=== PATIENT | female | born 1990 | race Caucasian/White ===

== ENCOUNTER 2022-07-20 12:30 | Outpatient (RCR) | payer OTHER, SELFPAY ==
[2022-07-14 11:32] VITALS: BP 129/88; PULSE 97; RESP 16; TEMP 36.4; O2SAT 100
[2022-07-14] MEDS: METHYLPREDNISOLONE SOD SUCC 1,000 MG in 0.9 % SODIUM CHLORIDE 100 ml 100 ML 116 MG IVPB (12:10)
[2022-07-15 08:01] VITALS: BP 122/77; PULSE 91; RESP 16; TEMP 35.8; O2SAT 95
[2022-07-15] MEDS: SODIUM CHLORIDE 0.9 % (FLUSH) 10 ML SYRINGE IVF (08:15)
[2022-07-15] MEDS: 0.9 % SODIUM CHLORIDE 250 ml IV (08:15)
[2022-07-15] MEDS: METHYLPREDNISOLONE SOD SUCC 1,000 MG in 0.9 % SODIUM CHLORIDE 100 ml 100 ML 116 MG IVPB (08:16)
[2022-07-18 10:54] VITALS: BP 105/73; PULSE 79; RESP 16; TEMP 36.6; O2SAT 97
[2022-07-18 11:20] VITALS: BP 108/60; BP 72/46; PULSE 44; PULSE 57; O2SAT 100; O2SAT 98
[2022-07-18 11:28] VITALS: BP 119/75; PULSE 64; O2SAT 99
[2022-07-18] MEDS: 0.9 % SODIUM CHLORIDE 250 ml IV (11:30)
[2022-07-18] MEDS: METHYLPREDNISOLONE SOD SUCC 1,000 MG in 0.9 % SODIUM CHLORIDE 100 ml 100 ML 120 MG IVPB (11:39)
--- NOTE | 2022-07-18 13:00 | PC.NURSE ---
Upon second attempt at starting peripheral IV in RIGHT forearm, pt verbalized that she was getting warm and then stated she was going to pass out. She proceeded to lose consciousness and was not responding to verbal stimuli. Nacho Diallo called and Ivone Grace APRN and [facility] staff came to assist. Vital signs obtained, see flowsheet. IV started in her LEFT hand. NS started to gravity. Pt was placed in Trendelenburg as able given she was in a reclining chair. After about 30 seconds pt regained consciousness and continued to verbalize that she felt very warm. Dr. Acosta came to pt's bedside to monitor and assess pt. Vital signs began to normalize, color returned to pt's face, and she started to feel better. then left the scene after pt stabilized. JEREMÍAS Wiseman directed this keno writer / runner to slow down IVF and proceed with her scheduled infusion.
[2022-07-19 10:46] VITALS: BP 129/82; PULSE 87; RESP 16; TEMP 36.9; O2SAT 95
[2022-07-19] MEDS: METHYLPREDNISOLONE SOD SUCC 1,000 MG in 0.9 % SODIUM CHLORIDE 100 ml 100 ML 116 MG IVPB (11:47)
[2022-07-19] MEDS: SODIUM CHLORIDE 0.9 % (FLUSH) 10 ML SYRINGE IVF (12:58)
[2022-07-20 12:23] VITALS: BP 124/80; PULSE 86; RESP 18; TEMP 36.6; O2SAT 96
[2022-07-20] MEDS: 0.9 % SODIUM CHLORIDE 250 ml IV (12:38)
[2022-07-20] MEDS: SODIUM CHLORIDE 0.9 % (FLUSH) 10 ML SYRINGE IVF (12:39)
[2022-07-20] MEDS: METHYLPREDNISOLONE SOD SUCC 1,000 MG in 0.9 % SODIUM CHLORIDE 100 ml 100 ML 120 MG IVPB (12:57)
== END 2023-01-10 23:59 | disposition home or self-care (01) ==
LOC: CCIC 12:30
PROVIDERS: Visit Provider Clinical Nurse Specialist
DX: G35 Multiple sclerosis (principal)
CPT/HCPCS: 96365; 99212; 99214; J2930; J7050

== ENCOUNTER 2023-02-01 08:25 | Outpatient (RCR) | payer OTHER, SELFPAY ==
--- NOTE | 2023-01-30 10:25 | PC.NURSE ---
Called pt today to confirm treatment scheduled for Monday. Pt is aware. She also shares that she was hoping to talk to financial services regarding an Ovravis payment plan that she has utilized in the past. RN reached out to financial services and they will call pt directly.
--- NOTE | 2023-01-30 11:52 | URNOTE ---
Request received for authorization for?Denis ([id number]). Prior authorization is approved from 02/01/2023 to 01/31/2024, [facility] Ref#[id number].
[2023-02-01 08:50] VITALS: BP 107/72; PULSE 97; RESP 16; TEMP 36.6; O2SAT 97
[2023-02-01] MEDS: ACETAMINOPHEN 325 MG TABLET 650 MG PO (09:06)
[2023-02-01] MEDS: METHYLPREDNISOLONE SOD SUCC 62.5 MG/ML (125) 100 MG IVP (09:06)
[2023-02-01] MEDS: diphenhydrAMINE 50 MG in 0.9 % SODIUM CHLORIDE 100 ml 100 ML 404 MG IVPB (09:18)
== END 2023-07-31 23:59 | disposition home or self-care (01) ==
LOC: CCIC 08:25
PROVIDERS: Visit Provider Clinical Nurse Specialist
DX: G35 Multiple sclerosis (principal)
CPT/HCPCS: 96376; 96413; 96415; A9270; J1200; J2350; J2930; J7120

== ENCOUNTER 2023-12-04 14:53 | Outpatient (CLI) | payer OTHER, SELFPAY | END 2023-12-04 14:54 | disposition home or self-care (01) | PROVIDERS: Visit Provider Advanced Practice Midwife | DX: Z34.91 Encounter for supervision of normal pregnancy, unspecified, first trimester (principal); Z3A.08 8 weeks gestation of pregnancy | CPT/HCPCS: 76817; 86592; 86703; 86704; 86706; 86762; 86787; 86803; 86850; 86900; 86901; 87086; 87340 ==

== ENCOUNTER 2024-02-22 12:56 | Outpatient (CLI) | payer OTHER, SELFPAY ==
--- NOTE | 2024-02-22 13:00 | US_ITS ---
Patient: [facility] Facility:?[facility] RIS Patient ID:?[id number] Site Patient ID:?[id number]. Site :?1991 Study:?US-OB Pelvis [facility]-02/22/2024 2:08:40 PM Ordering Physician:?CAMPOS HENDERSON Final Report: OB US LETTY by LMP: 07/11/2024. GA: 20w, 0d. INDICATION: Basic anatomy survey. FINDINGS: The trans cervical spine and trans thoracic spine images are suboptimal. Bilateral renal pelviectasis measuring 6 mm on the left and 6 mm on the right. position: Multiple positions. Cervix: Visualized. Technique: Transabdominal. Length of closed cervix: 4.8 cm. Placenta/cord: Anterior. Technique: Transabdominal. Placenta tip to internal OS: 3.6 cm. Umbilical Cord: 3-vessel cord. Placenta insertion: Central. Amniotic Fluid: 4.8cm SDP (greater than/equal to: 2- less than 8 cm). SURVEY: Observed Structures Cerebellum: Yes. 1.9 cm; 19w 6d. Cisterna Magna: Yes. 3 mm. Nuchal Fold: Yes. 2.7 mm. Lateral Ventricle: Yes. 6.8 mm. CSP: Yes. Midline Falx: Yes. Choroid Plexus: Yes. Spine: Yes/suboptimal Stomach: Yes. Abd Cord Insertion: Yes. Urinary Bladder: Yes. Diaphragm: Yes. Nose/lips: Yes. Orbital view: Yes. Profile: Yes. Upper Extremities: Yes. Lower Extremities: Yes. Hands: Yes. Feet: Yes. Four-Chamber Heart: Yes. LVOT: Yes. RVOT: Yes. 3VV: Yes. 3VTV: Yes. BPD: 4.4 cm. 19w 2d, 21 percent. HC: 16.8 cm. 19w 3d, 20 percent. AC: 15.6 cm. 20w 5d, 68 percent. FL: 3.2 cm. 20w 0d, 43 percent. FL/AC: 20.71 percent. HC/AC Ratio: 1.08. Heart rate: 138 beats per minute. age by this US: 19w 6d. LETTY by this US: 07/12/2024. EFW: 343 g. Weight: 12 oz. Percentile by LETTY: 61 percent. IMPRESSION: Single live intrauterine gestation. Pelviectasis bilaterally measuring 6 mm. Trans image of the cervical spine and thoracic spine are suboptimal. No gross anomalies otherwise seen. Erin Kaye M.D. Diagnostic/Breast Radiologist [email or web address] D& Transcribed: 12:51 p.m. SP/Dictated by: Erin Kaye MD @ 02/23/2024 10:03:00 AM Signed by:?Erin Kaye MD @02/25/2024 10:48:53 AM (Electronic Signature)
== END 2024-02-22 12:57 | disposition home or self-care (01) ==
LOC: US 12:57
PROVIDERS: Visit Provider Obstetrics & Gynecology
DX: Z34.92 Encounter for supervision of normal pregnancy, unspecified, second trimester (principal); Z3A.19 19 weeks gestation of pregnancy
CPT/HCPCS: 76805

== ENCOUNTER 2024-04-19 13:47 | Outpatient (CLI) | payer OTHER, SELFPAY ==
--- NOTE | 2024-04-19 14:00 | CRLHL7_ITS ---
For Patients: As a result of the Century Cures Act, medical imaging exams and procedure reports are released immediately into your electronic medical record. You may view this report before your referring provider. If you have questions, please contact your health care provider. INDICATION: Third trimester scan, evaluate growth. Follow-up pelviectasis. COMPARISON: 02/22/2024 TECHNIQUE: Real time matos scale imaging of the fetus was performed. FINDINGS: Sonographic imaging demonstrates a single living intrauterine gestation. Fetus demonstrates a regular cardiac rate of 142 beats per minute. Fetus has a vertex position. The placenta lies anteriorly. Amniotic fluid volume appears normal and there is a single deepest vertical pocket: 5.9 cm. The estimated weight is 1318gm which lies at the 70th %. On the prior OB ultrasound exam dated 02/22/2024 the estimated weight was at the 61st%. BPD 77th percentile. HC 50th percentile. AC is 74th percentile. FL 48th percentile. The HC/AC ratio measures 1.07 range (0.99-1.21). Right renal pelvis measures 2.6 millimeters. Left renal pelvis measures 2.4 millimeters. Previously, the renal pelvis measured 5-6 millimeters bilaterally. IMPRESSION: The renal pelvis has decreased in size bilaterally compared to the prior study. Sonographic gestational age 29 weeks 1 day and sonographic due date 07/04/2024. Sonographic age 1 week ahead of the clinical age. Estimated weight is 70th percentile. Abdominal circumference 74th percentile. Dictated by Niko Bundy MD @ 04/21/2024 7:13:30 AM (Electronically Signed)
== END 2024-04-19 13:48 | disposition home or self-care (01) ==
LOC: US 13:49
PROVIDERS: Visit Provider Obstetrics & Gynecology
DX: O28.3 Abnormal ultrasonic finding on antenatal screening of mother (principal); Z3A.29 29 weeks gestation of pregnancy
CPT/HCPCS: 76816; 86592

== ENCOUNTER 2024-05-28 14:30 | Outpatient (CLI) | payer OTHER, SELFPAY ==
--- NOTE | 2024-05-28 14:30 | CRLHL7_ITS ---
For Patients: As a result of the Century Cures Act, medical imaging exams and procedure reports are released immediately into your electronic medical record. You may view this report before your referring provider. If you have questions, please contact your health care provider. INDICATION: uterine size/date discrepancy COMPARISON: 04/19/2024 TECHNIQUE: Real time matos scale imaging of the fetus was performed. FINDINGS: Sonographic imaging demonstrates a single living intrauterine gestation. Fetus demonstrates a regular cardiac rate of 141 beats per minute. Fetus has a vertex position. The placenta lies anterior. Amniotic fluid volume appears normal and there is a single deepest vertical pocket: 7.4 cm. The estimated weight is 2737gm which lies at the 92nd %. On the prior OB ultrasound exam dated 04/19/2024 the estimated weight was at the 70th%. BPD 72nd percentile. HC 84th percentile. AC 90th percentile. FL 96th percentile. The HC/AC ratio measures 1.03 range (0.93-1.09). IMPRESSION: Sonographic gestational age 35 weeks 5 days and sonographic due date 06/27/2024. Sonographic age 2 weeks ahead of the clinical age. Estimated weight 92nd percentile. Abdominal circumference 90th percentile. Dictated by Niko Bundy MD @ 05/29/2024 6:53:35 AM (Electronically Signed)
== END 2024-05-28 14:31 | disposition home or self-care (01) ==
LOC: US 14:31
PROVIDERS: Visit Provider Obstetrics & Gynecology
DX: O26.849 Uterine size-date discrepancy, unspecified trimester (principal); O36.63X0 Maternal care for excessive fetal growth, third trimester, not applicable or unspecified; Z3A.35 35 weeks gestation of pregnancy
CPT/HCPCS: 76816

== ENCOUNTER 2024-06-10 12:03 | Outpatient (CLI) | payer OTHER, SELFPAY ==
[2024-06-11 12:32] LABS: Strep B DNA Probe Negative (Negative)
[2024-06-11 12:38] LABS: Strep B Susceptibility Needed? No
== END 2024-06-10 12:04 | disposition home or self-care (01) ==
PROVIDERS: Visit Provider Obstetrics & Gynecology
DX: Z34.03 Encounter for supervision of normal first pregnancy, third trimester (principal)
CPT/HCPCS: 87081; 87653

== ENCOUNTER 2024-07-07 20:17 | Outpatient (CLI) | payer OTHER, SELFPAY ==
[2024-07-07 20:24] VITALS: BP 130/79; PULSE 94
[2024-07-07 20:25] VITALS: PULSE 95; O2SAT 96
[2024-07-07 20:36] VITALS: RESP 18; TEMP 37
[2024-07-07 20:41] VITALS: PULSE 95; O2SAT 97
[2024-07-07 20:49] LABS: Appearance Urine Clear (Clear); Bilirubin Urine Negative (Negative); Blood Urine Negative (Negative); Color Urine Yellow (Yellow); Glucose Urine Negative (Negative); Ketones Urine 2+ (Negative); Leukocyte Esterase Urine Negative (Negative); Nitrite Urine Negative (Negative); Protein Urine Negative (Negative); Specific Gravity Urine 1.025 (1.000-1.030); Urobilinogen Urine 0.2 (0.2-1.0); pH Urine 5.5 (5.0-8.5)
--- NOTE | 2024-07-07 21:53 | PC.OBNST ---
NST Note NST Note Start: 07/07/24 20:18 Freq: ONCE Status: Active Protocol: Document 07/07/24 21:52 KASEY (Rec: 07/07/24 21:53 KASEY [id number]) NST Note 1 Para (# of births) 0 EDC 07/11/24 Gestational Age In Weeks & Days 39 Weeks & 3 Days Patient Presented with Complaint(s) of Contractions/cramping Reactive Yes Appropriate for Gestational Age Yes JERRELL Catsro RN Date 07/07/24 Reactive Yes Appropriate for Gestational Age Yes JERRELL Gamino RNC Date 07/07/24 OB NST charge Yes Complete NST Note via Write Note Yes The provider's electronic signature indicates the NST is reactive/appropriate for gestational age. *Note to provider: If an addendum is required, open the patient's chart and click on the note under the Nurse/Allied Health tab.
[2024-07-07 22:00] VITALS: BP 128/71; PULSE 74
== END 2024-07-07 22:13 | disposition home or self-care (01) ==
LOC: OB OUT 20:17 → OB 20:18
PROVIDERS: PCP Family Medicine; Visit Provider Obstetrics & Gynecology
DX: Z34.93 Encounter for supervision of normal pregnancy, unspecified, third trimester (principal); Z3A.39 39 weeks gestation of pregnancy
CPT/HCPCS: 59025; 81003; G0463

== ENCOUNTER 2024-07-18 06:34 | Inpatient (IN) | payer OTHER, SELFPAY ==
[2024-07-18] VITALS (132 sets, daily range): BP systolic 102–145; BP diastolic 46–84; PULSE 8–109; RESP 16; TEMP 36.6–37.1; O2SAT 74–100; BMI 39.6
[2024-07-18] MEDS: CEFAZOLIN 1 GM inj 3 GM IVP (00:01)
--- NOTE | 2024-07-18 07:26 | W.PM.LDBA ---
Subjective History of Present Illness Time Seen by Provider: 07:30 Date Seen: 07/18/24 Narrative: Emmanuelle is being admitted to Labor and Delivery for induction. She is a 33 year old at 41 and 0/7 weeks gestation. Her full history and physical was dictated by Dr. Jim on 06/25/2024. Please see this for details. Specific Issues/Plans HB: Solo. Baby: Boy! Wilson H&P by CGM on 06/25/24 # History of MS not on Medication Does not need Level 2 US Positive Ryan Murrell virus antibody (high link with MS per data less likely concern in ). #FAS 02/22/24: B/L mild pyelectasis: left:6mm, right: 5.6mm FU at 28 weeks: Bilateral kidneys within normal limits on 04/19/24 3. Anxiety- NOB: ADRIANA: (12), PHQ 9: (9) Managed with Hydroxyzine as needed Ultrasounds: 04/19: EFW 70%tile, AC 73.8%tile. SDP 5.9 cm.? 05/28: EFW 92%tile, AC 89%tile. SDP 7.4 cm. MATERNITY- 21- No increased risk for aneuploidy. COVID: declined Flu: declined TDAP: 05/20/24 32wk Mental Health: ADRIANA = 6 34wk Hgb: 12.9 OB - Problem Based A/P Additional Plan (1) Post-dates : Start date: 07/18/24 Status: Acute Plan: 1. Pitocin per induction protocol. 2. AROM when able. 3. Planning epidural for labor analgesia. 4. Blood type A+ 5. GBS negative. OB Exam Physical Exam Vital signs: Temp Pulse Resp BP Pulse Ox 98 F 87 16 122/78 97 07/18/24 07:01 07/18/24 07:01 07/18/24 07:01 07/18/24 07:01 07/18/24 06:59 Narrative: GENERAL APPEARANCE: Pleasant, , well-groomed woman in no acute distress. VITAL SIGNS: as noted in nursing notes HEAD: Normocephalic, atraumatic. THYROID: no masses, nodularity, tenderness or enlargement. LUNGS: Clear to auscultation bilaterally without wheezes, rales or rhonchi. HEART: Regular rate and rhythm with normal S1 and S2. No gallop, rub or murmur. ABDOMEN: Gravid. Soft, nontender, nondistended, with normal bowels sounds throughout. EFM: Baseline 130s, accelerations: Present, decelerations absent, reactive, category 1 TOCO: Sporadic contractions PRESENTATION: Vertex by George's maneuvers. SVE: 3.5 cm/ 70 %/ -1/soft/mid. Lundy score: 9 EXTREMITIES: No cyanosis, clubbing, or edema. No varicosities. NEUROLOGIC: Normal gait and balance. Normal deep tendon reflexes at bilateral patella 2+/2, equal without clonus. PSYCHIATRIC: alert and oriented x3. Normal speech pattern, eye contact and affect. SKIN: Warm, dry, and well perfused. Good turgor. No lesions, nodules or rashes.
[2024-07-18] MEDS: OXYTOCIN 30 unit/500 ML in NS 30 UNIT/500 ML BAG IVPB ×2 (08:11→21:16)
[2024-07-18 08:12] LABS: Basophils Percent Auto 0.2 % (0.0-3.0); Eosinophils Percent Auto 1.5 % (0.0-7.0); Hematocrit 40.7 % (33.0-51.0); Hemoglobin* 13.7 gm/dL (12.0-16.0); Immature Granulocytes Pct Auto 0.4 %; Mean Corpuscular HGB Conc 34 gm/dL (32-36); Mean Corpuscular Hemoglobin 29 pg (26-34); Mean Corpuscular Volume 86 fL (80-100); Monocytes Percent Auto 8.6 % (0.0-11.0); Neutrophils Percent Auto 66.3 % (42.0-72.0); Platelet Count* 283 K/uL (140-440); RDW Coefficient of Variation % 13.3 % (11.5-15.5); Red Blood Count 4.72 m/uL (4.00-5.20); White Blood Count* 11.38 K/uL (4.50-11.00)
[2024-07-18] MEDS: LACTATED RINGERS 1000 ML 1,000 ML 100 ML IV ×2 (08:14→16:38)
[2024-07-18 08:16] LABS: Slide Review Reflex No
[2024-07-18] MEDS: LACTATED RINGERS 1000 ML 1,000 ML 1200 ML IV ×3 (10:26→21:06)
--- NOTE | 2024-07-18 12:29 | PM.OBPNL ---
Subjective Time Seen by Provider: 12:15 Date Seen: 07/18/24 Narrative: Subjective: Patient is comfortable with contractions. Pitocin: 4 milliunits/minute. There was 1 spontaneous deceleration the heart rate that lasted about 3 minutes at approximately 10:30 a.m.. Spontaneous return to baseline. The patient had her Pitocin turned off and received 500 mL IV fluid bolus and the tracing has been reactive since then. Vital signs: Per electronic medical record. EFM: Baseline 130s, positive accelerations, negative decelerations, moderate variability, reactive. Category 1. [place]: Contractions every 8-10 minutes. SVE: 4 cm/50 %/-2/mid/soft. Ulndy:7 Assessment: 33-year-old 1 para 0 at 41 weeks 0 days gestation undergoing induction of labor for postdates. Plan: 1. Continue Pitocin per labor induction protocol. 2. Considering epidural for labor analgesia. 3. AROM when the patient feels comfortable having this intervention performed likely in the next 2-3 hours. Objective Vital Signs: Last Vital Signs Temp 98.3 F 07/18/24 10:52 Pulse 81 07/18/24 11:50 Resp 16 07/18/24 07:01 BP 131/76 07/18/24 11:50 Pulse Ox 100 07/18/24 11:07
[2024-07-18] MEDS: LIDOCAINE 2% (PF) 5 ML VIAL EPIDURAL (17:12)
[2024-07-18] MEDS: PHENYLEPHRINE 100 MCG/ML SYRINGE IVP ×2 (17:31→20:38)
[2024-07-18] MEDS: ROPIVACAINE 0.2% 100 ml 100 ML 12 MG EPIDURAL (17:56)
--- NOTE | 2024-07-18 18:13 | P.ANBPRC_ITS ---
[facility] Medical History History of low back pain ?Z87.39 - Personal history of other diseases of the musculoskeletal system and connective tissue (ICD-10) Surgical History Status post repair of glenoid labrum (2018) ?Z98.890 - Other specified postprocedural states (ICD-10) History of tonsillectomy ?Z90.89 - Acquired absence of other organs (ICD-10) History of dilation and curettage (06/25/19) ?Z98.890 - Other specified postprocedural states (ICD-10) History of appendectomy ?Z90.49 - Acquired absence of other specified parts of digestive tract (ICD- 10) History of arthroscopic knee surgery (2002) ?Z98.890 - Other specified postprocedural states (ICD-10) Family History Mother High blood pressure Melanoma Father Diabetes Lymphoma High cholesterol Brother Alcohol dependence Social History Narrative: SOCIAL Occupation: Commercial Property Manager Lives with her : [place] Pets: 2 Bunnies ( Will wear gloves to change liter) Abuse: Denies past/present Special Diet: No Ok with a blood transfusion: yes Culture or adventism beliefs: denies RISK FACTORS Exercise Times/wk: Walking/ Yoga Hx of Depression and anxiety: Managed with Hydralazine as needed Seat Belt Use: Routinely Smoking: Denies past/present Alcohol/day: Denies while Caffeine: Denies Drug Use: Denies past/present Chicken Pox: Yes as a child MRSA: Denies What is your current living situation?: I presently have a place to live Problems where you live: no known problems In the past 12 months, utilities in danger of being shut off: no In past 12 months, lack of transportation kept you from medical appts, meetings, work, or getting things needed for daily living: no In the past 12 mos, have been you worried that your food would run out before you had money to buy more?: never true In the past 12 mos, the food you bought just didn't last and you didn't have money to buy more?: never true Smoking Status: Never smoker How often does anyone, including family, friends and others, physically hurt you : never How often does anyone, including family, friends and others, insult or talk down to you: never How often does anyone, including family, friends and others, threaten you with harm: never How often does anyone, including family, friends and others, scream or curse at you: never Little interest or pleasure in doing things: several days Feeling down, depressed, or hopeless: several days Meds Home Medications and Allergies Home Medications ?Medication ?Instructions ?Recorded ?Confirmed ?Type lysine 500 mg tablet 500 mg PO QDAY 12/04/23 07/18/24 History vits no.126-ferrous fum 1 tab PO DAILY 12/04/23 07/18/24 History 28 mg iron-folic acid 800 mcg tablet (Classic ) Allergies Allergy/AdvReac Type Severity Reaction Status Date / Time nickel Allergy Unknown Rash Verified 07/11/24 12:49 Results Labs Labs: Laboratory Results - last 24 hr 07/18/24 07:58 WBC 11.38 H RBC 4.72 Hgb 13.7 Hct 40.7 MCV 86 MCH 29 MCHC 34 RDW Coeff of Julia 13.3 Plt Count 283 Neut % (Auto) 66.3 Lymph % (Auto) 23.0 [place] % (Auto) 8.6 Eos % (Auto) 1.5 Baso % (Auto) 0.2 Neut # (Auto) 7.50 H Lymph # (Auto) 2.60 [place] # (Auto) 1.00 H Eos # (Auto) 0.20 Baso # (Auto) 0.00 Abs Immat Gran (auto) 0.00 Imm/Tot Granulo (auto) 0.4 Vital Signs Vital Signs: Last Vital Signs Temp 98.8 F 07/18/24 17:43 Pulse 40 L 07/18/24 18:07 Resp 16 07/18/24 07:01 BP 140/64 H 07/18/24 18:11 Pulse Ox 97 07/18/24 18:08 Weight: 118.206 kg Height: 172.72 cm Anesthesia Procedures Epidural Insertion Patient Location: OB Start Time: 17:00 Stop Time: 18:00 Start Date: 07/18/24 Stop Date: 07/18/24 Reason for Block: procedure for pain Patient Position: sitting Performed By: Rhett Geronimo Preanesthetic Checklist: IV checked, risks and benefits discussed, monitors and equipment checked, pre-op evaluation, timeout performed and anesthesia consent Prep: chlorhexidine gluconate Monitoring: blood pressure monitoring, continuous pulse oximetry and heart rate Approach: midline Vertebral Space: lumbar (1-5) Epidural Technique: CONNOR saline Needle Type: Tuohy needle Injection Technique: continuous catheter Needle gauge: 17 Needle Length (cm): 10 cm Needle Insertion Depth (cm): 7 Catheter Gauge: 19 Catheter Type: multi-orifice Catheter at skin depth (cm): 15 Test Dose Result: negative and lidocaine 1.5% with epinephrine 1 to 200,000
--- NOTE | 2024-07-18 18:26 | PM.OBPNL ---
Subjective Time Seen by Provider: 17:30 Date Seen: 07/18/24 Narrative: Subjective: Patient is comfortable w/ epidural.. Pitocin was turned off due to a heart rate deceleration that lasted 4 minutes approximately 5:20 p.m. on 07/18/2024 just after the patient received an epidural bolus. She also received an IV fluid bolus of 1000 mL prior to the epidural. scalp electrode was applied after verbal consent obtained from the patient. The Pitocin was restarted at 5:50 p.m. 7 milliunits per minute. The Pitocin was at 14 milliunits per minute prior to being stopped. Vital signs: Per electronic medical record. FSE: Baseline 130s, no accelerations, 1 deceleration: Late in appearance lasting 4 minutes, moderate variability, not reactive. Category 2. [place]: Contractions every 2-5 minutes. SVE: 6 cm/90 %/0. Assessment: 33-year-old 1 para 0 at 41 weeks 0 days gestation undergoing induction for postdates . Plan: 1. Continue Pitocin per labor induction protocol. 2. Continue epidural for labor analgesia 3. Current status is reassuring Objective Vital Signs: Last Vital Signs Temp 98.8 F 07/18/24 17:43 Pulse 75 07/18/24 18:23 Resp 16 07/18/24 07:01 BP 133/73 07/18/24 18:23 Pulse Ox 96 07/18/24 18:23
--- NOTE | 2024-07-18 21:36 | P.OBPN_ITS ---
Subjective Time Seen by Provider: 21:36 Date Seen: 07/18/24 Narrative: Subjective: Patient is comfortable w/ epidural. At approximately 8:32 p.m. there was a spontaneous extended heart rate deceleration to the 60s with slow return to baseline the total deceleration time of approximately 8 minutes. Then there was 15 minutes of minimal variability followed by moderate variability in returning to reactive tracing by 9:15 p.m. Pitocin was turned off at 8:32 p.m. and was restarted at 3 milliunits per minute at 9:15 p.m. The patient was placed in hands and knees position during the deceleration and then turned to her right lateral side after approximately 30 minutes in hands and knees. Verbal consent obtained to place an intrauterine pressure catheter. Vital signs: Per electronic medical record. FSE: Baseline 130s, positive accelerations, 1 extended deceleration as darryl cribed above with no decelerations for greater than 30 minutes at the time of this note, moderate variability, reactive. Category 2. IUPC: Contractions every 2-5 minutes. [place] units <100 in 10 minutes. SVE: 9cm/100%/0. Assessment: 33-year-old 1 para 0 at 41 weeks 0 days gestation undergoing induction of labor for post-dates Plan: 1. Continue Pitocin per labor induction protocol. 2. Continue epidural for labor analgesia. 3. status reassuring at this time Objective Vital Signs: Last Vital Signs Temp 98.8 F 07/18/24 17:43 Pulse 102 H 07/18/24 21:23 Resp 16 07/18/24 07:01 BP 131/66 07/18/24 21:23 Pulse Ox 92 07/18/24 21:36
[2024-07-18] MEDS: KETOROLAC 30 MG/ML inj IVP (23:24)
--- NOTE | 2024-07-18 23:26 | P.OBPN_ITS ---
Subjective Time Seen by Provider: 23:26 Date Seen: 07/18/24 Narrative: Subjective: Patient is comfortable w/ epidural/uncomfortable with contractions. Pitocin: 4 milliunits/minute. Vital signs: Per electronic medical record. EFM: Baseline 130s, no accelerations, recurrent late decelerations for the last 20 minutes, moderate variability, nonreactive. Category to. [place]: Contractions every 2-5 minutes. SVE: 9 cm/100 %/0. Assessment: 33-year-old 1 para 0 at 41 weeks 0 days gestation recurrent late decelerations of the heart rate Plan: 1. Recommended primary low-transverse for nonreassuring heart rate tracing 2. Consent form for primary low-transverse reviewed and signed Objective Vital Signs: Last Vital Signs Temp 98.8 F 07/18/24 17:43 Pulse 73 07/18/24 22:54 Resp 16 07/18/24 07:01 BP 125/67 07/18/24 22:54 Pulse Ox 98 07/18/24 23:22
--- NOTE | 2024-07-18 23:30 | PM.PROC ---
Procedure Note Time Seen by Provider: :08 Date Seen: 07/19/24 Date of procedure: 07/19/24 Will [facility] bill your pro fee for this procedure?: Yes Procedure: Preoperative diagnosis: 33-year-old 1 para 0 at 41 and 0/7 weeks with current late decelerations of the heart rate. Postoperative diagnosis: Same Procedure: Primary low-transverse section Anesthesia: Epidural Surgeon: Simona Vera MD Quill Picking Machine Operator: Not applicable Quantitative blood loss: 694 mL IV Fluid: 1000 mL Urine output: 150 mL, clear urine at the end of the procedure Specimen: Placenta Drain(s): Oliva to gravity Indications: Recurrent late decelerations of the heart rate Findings: A live male was delivered from the ROT position at 12:13 a.m. Apgars were 9 at 1 min and 9 at 5 min respectively. weight: 9 lb 3 oz. Nuchal cord(s): No. The placenta was delivered spontaneously and complete at 12:15 a.m. Amniotic fluid: Clear. Normal uterus, fallopian tubes and ovaries were noted. Other findings: None Procedure: Emmanuelle was taken to the OR where epidural anesthetic was found be adequate. A Oliva catheter was placed. The patient was then placed in the dorsal supine position with a leftward tilt. She was then prepped and draped in a normal sterile manner. A Pfannenstiel skin incision was made and carried through sharply to the underlying layer of fascia. Fascia was incised in the midline and this incision carried laterally with Randle scissors. The superior aspect of fascial incision was grasped with Shruthi clamps, tented up, and the rectus muscles dissected off with a combination of blunt and sharp dissection. The inferior aspect of the fascial incision was not dissected off the rectus muscles. The rectus muscles were in the midline. The peritoneum was entered bluntly. This opening was extended bluntly. An Kade-O self-retaining retractor was placed. A bladder flap was not created. Uterus was incised in a low transverse manner in the midline. This incision carried laterally with blunt pressure on the inferior and superior aspects of the uterine incision. The amniotic sac was ruptured. The infant's head and body was delivered atraumatically. The was shown to the patient and her support person and then handed to waiting pediatric and nursing staff. The placenta was delivered spontaneously. The uterus was cleared of clots and debris. The uterine incision was re-approximated with the uterus in vivo. The 1st layer using 0-Vicryl in a running, locked manner. The 2nd layer using 0-Monocryl in a running, vertical, imbricating layer. Additional sutures needed for hemostasis: No. Excellent hemostasis was verified. The Kade retractor was removed. The rectus muscles were not reapproximated. The rectus muscles were then closely inspected to verify hemostasis. Hemostasis was obtained with bipolar cautery. The fascia was then re-approximated using 0-Maxon loop in a running manner. The subcutaneous tissue was then irrigated with saline and hemostasis obtained with bipolar cautery. The subcutaneous tissue was re-approximated using 3-0 plain gut interrupted sutures. The skin was reapproximated using 4-0 Monocryl in a running subcuticular manner. Exofin skin adhesive and a Mepilex dressing were applied. The patient tolerated this procedure well. Sponge, lap and instrument counts were correct x2 active to the procedure. Patient was taken to the recovery area in stable condition. The patient received 3 g of IV Ancef and 500 mg IV azithromycin prior to skin incision.
[2024-07-18] MEDS: AZITHROMYCIN 500 MG in 0.9 % SODIUM CHLORIDE 250 ml 250 ML 255 MG IVPB ×2 (23:32→23:35)
[2024-07-18] MEDS: ONDANSETRON 2 MG/ML inj 4 MG IV (23:41)
[2024-07-19] VITALS (19 sets, daily range): BP systolic 94–143; BP diastolic 49–88; PULSE 63–88; RESP 14–20; TEMP 36.5–38; O2SAT 91–99
--- NOTE | 2024-07-19 01:28 | P.NB_ITS ---
Nerve Block Nerve Block Type of block requested by surgeon for post-operative analgesia: TAP Side: bilateral Time out performed: Yes Verification of patient name: Yes Verification of date of : Yes Site marking: site marked Name of person performing procedure: Rhett Geronimo Continuous monitoring Was continuous monitoring of O2 sat, B/P, cardiac rehabilitation program director, recorded every 15 minutes?: Yes Procedure Checklist: sterile prep, needles and gloves Ultrasound guided. Images saved: Yes Medications given in 5ml increments after negative aspiration: Marcaine %: 0.25 mL: 30 Needle gauge: 21 and Exparel mL: 10 Needle gauge: 21 Patient tolerated procedure well: Yes Additional comments: Injected in 5mL increments after negative aspiration Block Charges Block Charge (with Pro Fee): TAP Bilateral Use of Ultrasound Machine for Block: Yes- US Guidance/pain block
--- NOTE | 2024-07-19 01:29 | P.ANES_ITS ---
Anesthesia Charges Start Date/Time Anesthesia Start Date: 07/19/24 Anesthesia Start Time: 23:49 Stop Date/Time Anesthesia Stop Date: 07/19/24 Anesthesia Stop Time: 01:09 Summary Emergency: WELDING TECHNICIAN
[2024-07-19] MEDS: OXYTOCIN 30 unit/500 ML in NS 30 UNIT/500 ML BAG 300 UNIT IVPB (02:26)
[2024-07-19] MEDS: ACETAMINOPHEN 500 MG TABLET 1000 MG PO ×4 (03:07→23:54)
[2024-07-19] MEDS: KETOROLAC 30 MG/ML inj IVP (06:40)
[2024-07-19] MEDS: SODIUM CHLORIDE 0.9 % (FLUSH) 10 ML SYRINGE IVF (06:41)
[2024-07-19] MEDS: DOCUSATE SODIUM 100 MG CAPSULE PO (11:01)
[2024-07-19] MEDS: OXYCODONE 5 MG TABLET PO ×3 (13:05→23:53)
[2024-07-19] MEDS: IBUPROFEN 600 MG TABLET PO ×2 (13:05→20:14)
[2024-07-20 00:37] VITALS: BP 128/74; PULSE 80; RESP 16; TEMP 36.4; O2SAT 97
[2024-07-20 01:35] LABS: Rapid Plasma Reagin (RPR) Non Reactive (Non Reactive)
[2024-07-20] MEDS: IBUPROFEN 600 MG TABLET PO ×3 (02:10→19:03)
[2024-07-20] MEDS: OXYCODONE 5 MG TABLET PO ×5 (04:01→22:42)
[2024-07-20] MEDS: ACETAMINOPHEN 500 MG TABLET 1000 MG PO ×3 (05:58→20:05)
[2024-07-20 07:28] LABS: Hemoglobin* 10.6 gm/dL (12.0-16.0)
[2024-07-20 08:05] VITALS: BP 115/70; PULSE 75; RESP 18; TEMP 36.6; O2SAT 97
--- NOTE | 2024-07-20 08:06 | PM.OBPNVD1 ---
OB - PN:Subj Subjective Time Seen by Provider: 08:06 Date Seen: 07/20/24 Patient comments OB post-: no complaints, pain well controlled, tolerating diet and flatus present infant status: [place] feeding status: exclusively Narrative: Emmanuelle postop day 1 From a primary low-transverse for nonreassuring heart rate tracing. She is doing well and has no concerns. She is tolerating regular diet, passing flatus and ambulating without difficulty. Urine output is adequate Oliva catheter was removed yesterday. She will be able to use the shower today and planning on discharge home tomorrow. OB - PN: Obj Exam Physical Exam: Vital signs: Temp Pulse Resp BP Pulse Ox O2 Del Method 97.6 F 80 16 128/74 97 Room Air 07/20/24 00:37 07/20/24 00:37 07/20/24 00:37 07/20/24 00:37 07/20/24 00:37 07/20/24 00:37 Narrative: General: Pleasant, , well groomed woman in no acute distress. Vital signs: Included in her electronic medical record. Heart: Regular rate and rhythm without gallop, rub or murmur. Chest: Clear to auscultation bilaterally. Abdomen: Soft, nontender, nondistended with normal bowel sounds throughout. Fundus firm at 1 cm below the umbilicus in the midline. Incision: Clean, dry and intact with sutures and skin adhesive gel. Extremities: 2+ bilateral lower extremity edema to the mid mo which is normal for this amount of time . She was also swollen during the . No pain. OB - PN: Obj Data Labs Labs: Laboratory Results - last 24 hr 07/18/24 07/20/24 07:58 06:47 Hgb 10.6 L RPR Screen Non Reactive OB - PN: A/P Delivery Assessment and Plan (1) Post-dates : Status: Acute (2) Status post primary low transverse section: Status: Acute Assessment and Plan: 1. Continue postoperative cares. 2. Patient is planning to shower today. 3. Planning discharge home tomorrow.
[2024-07-20] MEDS: DOCUSATE SODIUM 100 MG CAPSULE PO ×2 (08:20→19:03)
[2024-07-20 16:03] VITALS: BP 100/63; PULSE 68; RESP 18; TEMP 36.8; O2SAT 96
[2024-07-21 01:13] VITALS: BP 111/66; PULSE 73; RESP 12; TEMP 36.9
[2024-07-21] MEDS: IBUPROFEN 600 MG TABLET PO ×2 (01:21→07:41)
[2024-07-21] MEDS: OXYCODONE 5 MG TABLET PO (03:14)
[2024-07-21] MEDS: DOCUSATE SODIUM 100 MG CAPSULE PO (07:41)
[2024-07-21 07:43] VITALS: BP 100/64; PULSE 78; RESP 18; TEMP 36.6; O2SAT 96
--- NOTE | 2024-07-21 08:53 | P.DS_ITS ---
DS: Providers Provider Time Seen by Provider: 08:53 Date Seen: 07/21/24 Date of admission: 07/18/24 06:34 Primary care physician: Lucas Carl MD Admitting Clinician: Simona Vera MD Attending Physician on discharge: Simona Vera MD Date of Discharge: 07/21/24 DS: Diagnosis Discharge Diagnosis (1) Status post primary low transverse section: Status: Acute (2) Non-reassuring status, delivered, current hospitalization: Status: Acute Exam Narrative: Exam Narrative: General: Pleasant, , well groomed woman in no acute distress. Vital signs: Included in her medical record. Heart: Regular rate and rhythm without gallop, rub or murmur. Chest: Clear to auscultation bilaterally. Abdomen: Soft, nontender, nondistended with normal bowel sounds. Fundus is firm at 1 cm below the umbilicus in the midline. Incision: Clean, dry and intact with sutures and skin adhesive gel. Extremities: 2+ bilateral lower extremity edema to the mid mo. Normal for . No pain. Const: Vital Signs, click to edit/add: Vital Signs - 24 hr 07/20/24 16:03 07/21/24 01:13 07/21/24 07:43 Temperature 98.2 F 98.5 F 97.9 F Pulse Rate [Pulse Oximeter] 68 73 78 Respiratory Rate 18 12 18 Blood Pressure [Ri ght Arm] 100/63 111/66 100/64 Pulse Oximetry 96 96 Oxygen Delivery Me thod Room Air Room Air OB - DS: Summary Hospital Course Hospital Course: Emmanuelle is a 33 year old G 1 P now 1 at admitted at 41 weeks gestation that was admitted to the Center on 07/18/24 for induction of labor. She had an uncomplicated delivery on 10/18/2024. She delivered a viable male inf ant. She is breast feeding. the patient has done well. Peripartum Data Infant delivery method: Primary C/S; Labored Procedures: Procedures Operation Date: 07/19/24 00:00 Actual Procedure Side Surgeon p Primary Low Transverse Section Not Applicable Simona Vera MD Gender: Male Time Spent with Patient Time attestation: Total time spent providing and/or coordinating discharge services: Discharge Plan Discharge Disposition: Home, Self-Care Date of Admission: 07/18/24 06:34 Attending Provider on Discharge: Simona Vera Primary Care Provider: Lucas Carl Condition: Stable Anticipated Discharge Date/Time: 07/21/24 11:30 Discharge Medications: New docusate sodium 100 mg Capsule 100 mg PO BID PRN (Reason: constipation) Qty: 100 0RF ibuprofen 600 mg Tablet 600 mg PO Q6H PRN (Reason: Pain) Qty: 30 0RF oxycodone 5 mg Tablet 5 - 10 mg PO Q4H PRN (Reason: Pain) Qty: 21 0RF Continued hydroxyzine HCl 25 mg tablet 25 mg PO QHS PRN (Reason: insomnia) Qty: 90 3RF omeprazole 40 mg capsule,delayed release(DR/EC) 40 mg PO BID Qty: 60 1RF Classic 28 mg iron- 800 mcg tablet 1 tab PO DAILY lysine 500 mg tablet 500 mg PO QDAY Discontinued (DME) miscellaneous medical supply Misc See Rx Instructions .Route Qty: 2 0RF Hold Instructions: not using Rx Instructions: Compression stockings, knee high, 20-30mmHG Discharge Orders: Discharge Order (Routine); Ordered 07/21/24 Ordered By: Simona Vera Patient Education: (DC) Additional Instructions: ACTIVITY RESTRICTIONS: * Nothing vaginally for 6 weeks: no tampons/intercourse * No driving while taking narcotic pain medication during the day. 1-2 weeks. * Lifting restriction: Maximum of 20 pounds for 6 weeks. * High impact or core exercises: 6 weeks. * Submerge the incision in water (bath/pool/lamar): 2 weeks. * Off of work/school for a minimum of 8 weeks NO RESTRICTIONS for: * Walking * Going up/down stairs * Showering * Being a passenger in a motor vehicle Symptoms to report to doctor: -Bleeding that saturates more than one pad per hour ?-Passing clots larger than the size of a golf ball ?-Pain not relieved by prescribed medication ?-Fever above 100.4 degrees Fahrenheit ? -A foul vaginal odor ?-Difficulty in emotions, mood and functions ?-Thoughts of hurting yourself and/or ?-Painful, reddened area in your breast ? -Any drainage, redness or tenderness in your IV/epidural site ?-Severe headache that doesn't improve after taking medications ?-Changes in vision, including temporary loss of vision, blurred vision, and/or light sensitivity ?-Upper abdominal pain (usually under ribs on the right side) ?-Decrease in urination or painful, frequent urinating ?-Chest pain ?-Shortness of breath ?-Tenderness or pain with redness and/swelling in the calf(s) of your leg Follow-up: 1. [facility] 2 weeks: incision check, screen for anxiety & depression, discuss contraceptive options. 2. A 6 week visit for an annual physical exam. consultation services are available to all mothers and babies for the first year after delivery.? To make an appointment, please call [phone]. Activity Level: Other Discharge Diet: Regular Follow Up Appointments: [facility] [Provider Group] Simona Vera MD [Staff Physician] - Lucas Carl MD [Primary Care Provider] - Forms: [employer] Info Instructions
== END 2024-07-21 12:15 | disposition home or self-care (01) | DRG 788 ==
PROVIDERS: Admitting Provider Obstetrics & Gynecology; PCP Family Medicine; Visit Provider Obstetrics & Gynecology
PROC: 10907ZC Drainage of Amniotic Fluid, Therapeutic from Products of Conception, Via Natural or Artificial Opening (ICD-10-PCS; CPT 59514; principal; 2024-07-18 23:45)
DX: O48.0 Post-term pregnancy (principal); O76 Abnormality in fetal heart rate and rhythm complicating labor and delivery; G89.18 Other acute postprocedural pain; O99.344 Other mental disorders complicating childbirth; F41.9 Anxiety disorder, unspecified; O35.8XX0 Maternal care for other (suspected) fetal abnormality and damage, not applicable or unspecified; Z37.0 Single live birth; Z3A.41 41 weeks gestation of pregnancy
CPT/HCPCS: 01961; 01967; 36415; 64488; 76942; 85018; 85025; 86592; 86850; 86900; 86901; 88307; 99140; A9270; C9290; J0456; J0665; J0690; J1100; J1885; J2371; J2405; J2590; J2795; J3010; J7050; J7120

== ENCOUNTER 2024-09-10 11:26 | Outpatient (CLI) | payer OTHER, SELFPAY | END 2024-09-10 11:27 | disposition home or self-care (01) | PROVIDERS: PCP Family Medicine; Visit Provider Obstetrics & Gynecology | DX: O91.23 Nonpurulent mastitis associated with lactation (principal) | CPT/HCPCS: 87070; 87186 ==

== ENCOUNTER 2024-10-14 08:30 | Outpatient (RCR) | payer OTHER, SELFPAY ==
--- NOTE | 2023-08-04 10:14 | ONC.NURNOTE ---
[facility] called [facility] today stating they spoke to pt and there has been a change in pt's treatment plan. Pt will not be receiving Ocrevus at this time.
--- NOTE | 2024-09-23 15:15 | URNOTE ---
Request received for authorization for?Ocrevus ([id number]). Prior authorization is approved for Ocrevus 300mg, followed 2weeks later by a second 300mg dose. Subsequent doses 600mg every 5 to 6 months. Date range: from 09/13/2024 to 12/20/2024, Auth:[id number]. per [employer] pt will be contacted re: use of home-infusion, office-based infusion, ambulatory setting as she has a 3month approval at this outpatient hospital setting.
[2024-09-30 08:40] VITALS: BP 106/71; PULSE 73; RESP 16; TEMP 36.1; O2SAT 97
[2024-09-30] MEDS: ACETAMINOPHEN 325 MG TABLET 650 MG PO (09:07)
[2024-09-30] MEDS: 0.9 % SODIUM CHLORIDE 500 ML IV (09:18)
[2024-09-30] MEDS: SODIUM CHLORIDE 0.9 % (FLUSH) 10 ML SYRINGE IVF (09:18)
[2024-09-30] MEDS: METHYLPREDNISOLONE SOD SUCC 62.5 MG/ML (125) 100 MG IVP (09:22)
[2024-09-30] MEDS: diphenhydrAMINE 50 MG in 0.9 % SODIUM CHLORIDE 100 ml 100 ML 400 MG IVPB (09:22)
[2024-09-30 14:32] VITALS: BP 107/74; PULSE 89; RESP 14; TEMP 36.1; O2SAT 96
--- NOTE | 2024-10-10 10:45 | PC.NURSE ---
Received a call from Alex at [employer] stating that pt is authorized to receive Ocrevus at [facility] for all treatments (not just first two as previously understood). Alex states that for treatments starting in 2024, the prescription needs to go to [facility] and they will ship drug to [facility] and we can administer at [facility]. Authorization number for the aforementioned plan is [id number].
--- NOTE | 2024-10-10 11:22 | URNOTE ---
Luci Barrios the approval Auth #[id number] for Buy & Bill at [facility] is planned for 1 more dose for 09/2024. Then health plan is transition to white bagging through [facility], per nurse coordinator Ryan at Ref#call [id number]. Confirmed with . Ruth Sharma when wt. bagging the administration code will be covered by the plan as the medication is white bagged and hospital is not billing for the Jcode.
[2024-10-14 08:22] VITALS: BP 131/68; PULSE 80; RESP 16; TEMP 36.6; O2SAT 96
[2024-10-14] MEDS: SODIUM CHLORIDE 0.9 % (FLUSH) 10 ML SYRINGE IVF (08:43)
[2024-10-14] MEDS: METHYLPREDNISOLONE SOD SUCC 62.5 MG/ML (125) 100 MG IVP (08:47)
[2024-10-14] MEDS: 0.9 % SODIUM CHLORIDE 500 ML IV (08:48)
[2024-10-14] MEDS: diphenhydrAMINE 50 MG in 0.9 % SODIUM CHLORIDE 100 ml 100 ML 404 MG IVPB (08:48)
[2024-10-14] MEDS: ACETAMINOPHEN 325 MG TABLET 650 MG PO (08:48)
[2024-10-14 13:45] VITALS: BP 108/65; PULSE 75; RESP 16; TEMP 36.8; O2SAT 97
--- NOTE | 2025-03-25 14:34 | ONC.NURNOTE ---
Called patient to notify her that we no longer white bag medications, and to see if can submit to insurance about using buy and bill for medication. She notes that she is trying something new and wants to hold off on her infusion. She was instructed to contact us if she needs this in the future, and we will attempt to get it covered via buy and bill.
== END 2025-03-29 23:59 | disposition home or self-care (01) ==
LOC: CCIC 08:30
PROVIDERS: PCP Family Medicine; Referring Provider Family Medicine; Visit Provider Clinical Nurse Specialist
DX: G35 Multiple sclerosis (principal)
CPT/HCPCS: 96365; 96366; 96367; 96375; A9270; J1200; J2350; J2919; J7030; J7050

== ENCOUNTER 2025-10-10 12:48 | Outpatient (CLI) | payer OTHER, SELFPAY ==
--- NOTE | 2025-10-10 13:00 | CRLHL7_ITS ---
For Patients: As a result of the Century Cures Act, medical imaging exams and procedure reports are released immediately into your electronic medical record. You may view this report before your referring provider. If you have questions, please contact your health care provider. OB ULTRASOUND LESS THAN 14 WEEKS CLINICAL HISTORY: Dating and viability. TECHNIQUE: Grayscale and color Doppler ultrasound of the uterus and ovaries from a transvaginal approach. Transvaginal ultrasound of the pelvis was performed to better evaluate the genitourinary organs such as the ovaries and/or endometrium. Previous US: No. FINDINGS: Imaging: TV. LMP: 08/12/2025. LETTY by LMP: 05/19/2026. GA: 8 weeks 3 days. CRL: 2.0 cm, 8 weeks 4 days. LETTY 05/18/2026. CRL: 2.0 cm , 8 weeks 4 days. LETTY 05/13/2026. GEST SAC: 3.8 cm, appears WNL. Yolk Sac: 3.1 mm, appears WNL. RIGHT OV: WNL. 3.2 X 2.5 X 1.7 CM. LEFT OV: WNL. 4.0 x 2.9 x 2.8 cm. IMPRESSION: 1. Single living intrauterine measures 8 weeks 4 days with sonographic due date 05/18/2026. 2. Subchorionic hemorrhage measures 2.0 x 0.8 x 3.3 cm. Niko Bundy M.D. Diagnostic Radiologist [email or web address] Transcribed: 2:52 pm DW/Dictated by: Niko Bundy MD @ 10/10/2025 1:23:00 PM (Electronically Signed)
== END 2025-10-10 12:49 | disposition home or self-care (01) ==
LOC: US 12:49
PROVIDERS: PCP Family Medicine; Visit Provider Registered Nurse
DX: Z36.87 Encounter for antenatal screening for uncertain dates (principal); O41.8X10 Other specified disorders of amniotic fluid and membranes, first trimester, not applicable or unspecified; Z3A.08 8 weeks gestation of pregnancy
CPT/HCPCS: 76817

== ENCOUNTER 2025-10-10 13:39 | Outpatient (CLI) | payer OTHER, SELFPAY ==
[2025-10-10 20:25] LABS: Chlamydia DNA Amplified* NOT DETECTED (No Detected); GC DNA Amplified* NOT DETECTED (No Detected)
== END 2025-10-10 13:40 | disposition home or self-care (01) ==
PROVIDERS: PCP Family Medicine; Visit Provider Registered Nurse
DX: Z34.91 Encounter for supervision of normal pregnancy, unspecified, first trimester (principal)
CPT/HCPCS: 83020; 83021; 85660; 86703; 86704; 86762; 86780; 86787; 86803; 86850; 87086; 87340; 87491; 87591